=== PATIENT | female | born 1955 | race Caucasian/White ===

== ENCOUNTER → 2017-04-01 | Outpatient (CLI) | payer BC, SELFPAY | END | disposition short-term general hospital (02) | LOC: CLNEUR 11:01 | DX: Z47.89 Encounter for other orthopedic aftercare (principal) ==

== ENCOUNTER → 2017-05-13 | Outpatient (CLI) | payer BC | END | disposition short-term general hospital (02) | LOC: CLNEUR 12:49 | DX: Z47.89 Encounter for other orthopedic aftercare (principal); M79.606 Pain in leg, unspecified; R29.898 Other symptoms and signs involving the musculoskeletal system; M43.16 Spondylolisthesis, lumbar region; M43.17 Spondylolisthesis, lumbosacral region; M47.896 Other spondylosis, lumbar region; M41.9 Scoliosis, unspecified; Z98.890 Other specified postprocedural states | CPT/HCPCS: 73502-LT ==